=== PATIENT | female | born 1990 | race American Indian/Alaskan Native ===

== ENCOUNTER 2019-01-15 13:19 | Emergency (ER) | payer SELFPAY ==
[2019-01-15 13:54] VITALS: BP 120/63
[2019-01-15 14:59] LABS: HCG Qualitative,Urine Negative (Negative)
[2019-01-15 15:00] LABS: Bilirubin,Urine NEG (Negative); Blood,Urine NEG (Negative); Color,Urine Yellow (Yellow); Mucus,Urine FEW /HPF; Protein,Urine <15 mg/dL mg/dL (Negative); Urobilinogen,Urine < 2.0 mg/dL (<2.0)
--- NOTE | 2019-01-15 15:43 | Emergency Department Report ---
ED Female HPI - General Chief complaint: Urogenital-Female Stated complaint: STD POSS/URINE STEVENS/DISCOMFORT Time Seen by Provider: 01/15/19 15:40 Source: patient Mode of arrival: Ambulatory Limitations: No Limitations - History of Present Illness Initial comments: Patient is a 28-year-old female presents to the ED complaining of vaginal irritation with foul odor times 2 days. She denies any vaginal lesions or pain. She states last menstrual period was December 2015. Patient reports recent unprotected sex with her partner . Patient denies any fever, chills, nausea or vomiting vaginal itching, dysuria, vaginal bleeding, dyspareunia. - Related Data Previous Rx's Medication Instructions Recorded Last Taken Type Acetamin/Codeine 120-12Mg/5 ml 10 ml PO Q6H PRN #180 oz 08/13/13 Unknown Rx [Tylenol/Codeine] Amoxicillin [Trimox CAP] 500 mg PO Q8H #30 capsule 08/13/13 Unknown Rx Prednisone [Prednisone 10 mg 10 mg PO .TAPER #1 tab.ds.pk 08/13/13 Unknown Rx (6-Day Pack, 21 Tabs)] Allergies Allergy/AdvReac Type Severity Reaction Status Date / Time diphenhydramine HCl Allergy Swelling Verified 01/15/19 13:20 [From Benadryl] ED Review of Systems ROS: Stated complaint: STD POSS/URINE STEVENS/DISCOMFORT Other details as noted in HPI ED Past Medical Hx - Past Medical History Previous Medical History?: No Additional medical history: denies - Surgical History Past Surgical History?: No Additional Surgical History: denies - Social History Smoking Status: Current Every Day Smoker Substance Use Type: None - Medications Home Medications: Home Medications Medication Instructions Recorded Confirmed Last Taken Type Acetamin/Codeine 120-12Mg/5 ml 10 ml PO Q6H PRN #180 oz 08/13/13 Unknown Rx [Tylenol/Codeine] Amoxicillin [Trimox CAP] 500 mg PO Q8H #30 capsule 08/13/13 Unknown Rx Prednisone [Prednisone 10 mg 10 mg PO .TAPER #1 tab.ds.pk 08/13/13 Unknown Rx (6-Day Pack, 21 Tabs)] ED Physical Exam - General Limitations: No Limitations General appearance: alert, in no apparent distress - Head Head exam: Present: atraumatic, normocephalic - Eye Eye exam: Present: normal appearance - ENT ENT exam: Present: mucous membranes moist - Neck Neck exam: Present: normal inspection - Respiratory Respiratory exam: Present: normal lung sounds bilaterally. Absent: respiratory distress - Cardiovascular Cardiovascular Exam: Present: regular rate, normal rhythm. Absent: systolic murmur, diastolic murmur, rubs, gallop - GI/Abdominal GI/Abdominal exam: Present: soft, normal bowel sounds - External exam: Present: normal external exam. Absent: swelling, lesions Speculum exam: Present: vaginal discharge, cervical discharge. Absent: foreign body Bi-manual exam: Present: normal bi-manual exam - Extremities Exam Extremities exam: Present: normal inspection - Back Exam Back exam: Present: normal inspection - Neurological Exam Neurological exam: Present: alert, oriented X3 - Psychiatric Psychiatric exam: Present: normal affect, normal mood - Skin Skin exam: Present: warm, dry, intact, normal color. Absent: rash ED Course Vital Signs 01/15/19 13:52 Temperature 98.6 F Pulse Rate 89 Respiratory 16 Rate Blood Pressure 120/63 O2 Sat by Pulse 100 Oximetry ED Medical Decision Making - Lab Data Laboratory Last Values Urine Color Yellow (Yellow) 01/15/19 14:36 Urine Turbidity Clear (Clear) 01/15/19 14:36 Urine pH 7.0 (5.0-7.0) 01/15/19 14:36 Ur Specific [place] 1.016 (1.003-1.030) 01/15/19 14:36 Urine Protein <15 mg/dl mg/dL (Negative) 01/15/19 14:36 Urine Glucose (UA) Neg mg/dL (Negative) 01/15/19 14:36 Urine Ketones Neg mg/dL (Negative) 01/15/19 14:36 Urine Blood Neg (Negative) 01/15/19 14:36 Urine Nitrite Neg (Negative) 01/15/19 14:36 Ur Reducing Substances Not Reportable 01/15/19 14:36 Urine Bilirubin Neg (Negative) 01/15/19 14:36 Urine Ictotest Not Reportable 01/15/19 14:36 Urine Urobilinogen < 2.0 mg/dL (<2.0) 01/15/19 14:36 Ur Leukocyte Esterase Neg (Negative) 01/15/19 14:36 Urine WBC (Auto) 2.0 /HPF (0.0-6.0) 01/15/19 14:36 Urine RBC (Auto) 1.0 /HPF (0.0-6.0) 01/15/19 14:36 U Epithel Cells (Auto) 1.0 /HPF (0-13.0) 01/15/19 14:36 Urine Mucus Few /HPF 01/15/19 14:36 Urine HCG, Qual Negative (Negative) 01/15/19 14:36 - Medical Decision Making This 28-year-old female presents with vaginitis. Urinalysis urine test was negative. Wet prep negative for trichomoniasis and he is positive for clue cells. patient left the ER before her wet prep results were resulted. Discussed with patient needs this is a screened if she is worried about STDs. gonorrhea and chlamydia cultures were obtained results will be resulted until 3- 4 days. Discussed this with the patient tired to follow up with her [facility] doctor. Critical care attestation.: If time is entered above; I have spent that time in minutes in the direct care of this critically ill patient, excluding procedure time. ED Disposition Clinical Impression: Bacterial vaginosis Disposition: Z-07 ELOPED Is pt being admited?: No Does the pt Need Aspirin: No Condition: Stable Instructions: Bacterial Vaginosis (ED) Additional Instructions: Make sure to follow up with the primary care physician as discussed. Take all your medications as you've been prescribed. If you have any worsening symptoms or develop new symptoms please return to ED immediately. Referrals: PRIMARY CARE, [Primary Care Provider] - 3-5 Days [facility] [Outside] - 3-5 Days Forms: STI Treatment and Prevention
== END 2019-01-15 17:24 | disposition left against medical advice (07) ==
LOC: ED 13:19
DX: N76.0 Acute vaginitis (principal); B96.89 Other specified bacterial agents as the cause of diseases classified elsewhere; F17.200 Nicotine dependence, unspecified, uncomplicated; Z88.1 Allergy status to other antibiotic agents; Z79.899 Other long term (current) drug therapy
CPT/HCPCS: 81001; 81025; 87210; 87591

== ENCOUNTER 2020-02-05 12:25 | Emergency (ER) | payer SELFPAY ==
[2020-02-05 12:40] VITALS: BP 126/74
--- NOTE | 2020-02-05 12:43 | Emergency Department Report ---
Chief Complaint: Urogenital-Female Stated Complaint: STD CHECK - HPI History of Present Illness: 29-year-old -[place] female presents to the emergency room requesting STD check. Patient denies any abdominal pain no vaginal discharge no dysuria no fever no chills no shortness of breath or chest pain. - Exam Physical Exam: Gen: alert oriented NAD Cardic: regular rate and rhythm no murmurs appreciated Resp: Clear to auscultation bilateral no wheezing no rales or rhonchi. Abdomen: Soft nontender nondistended normal bowel sounds. MSE screening note: Focused history and physical exam performed. Due to findings the following was ordered: 29-year-old -[place] female presents to the emergency room requesting STD check. Patient denies any abdominal pain no vaginal discharge no dysuria no fever no chills no shortness of breath or chest pain. Referral to health department. ED Disposition for MSE Disposition: MED SCREENING EXAM-LEFT Is pt being admited?: No Does the pt Need Aspirin: No Condition: Stable Additional Instructions: Referral to health department for STD evaluation and treatment. Referrals: [facility] [Outside] - 3-5 Days [facility] [Outside] - 3-5 Days [facility] [Outside] - 3-5 Days
== END 2020-02-05 12:34 | disposition left against medical advice (07) ==
LOC: ED 12:25
DX: Z20.2 Contact with and (suspected) exposure to infections with a predominantly sexual mode of transmission (principal); Z53.21 Procedure and treatment not carried out due to patient leaving prior to being seen by health care provider